=== PATIENT | female | born 1975 | race Caucasian/White ===

== ENCOUNTER 2024-07-28 13:29 | Emergency (ER) | payer OTHER ==
[2024-07-28] MEDS ORDERED: Morphine 2 MG/ML VIAL ONE (13:56)
[2024-07-28] MEDS ORDERED: Aspirin 325 MG TAB ONE (13:56)
[2024-07-28] MEDS ORDERED: Ondansetron PF 4 MG/2 ML Vial ONE (13:56)
[2024-07-28] MEDS ORDERED: Famotidine/PF 20 mg/2ml Vial ONE (13:56)
[2024-07-28 13:57] LABS: #Lymphocytes 1.8 thou/uL (1.20-3.40); #Monocytes 0.4 thou/uL (0.11-0.59); #Neutrophils 2.8 thou/uL (1.40-6.50); %Basophils 0.8 % (0.0-1.0); %Eosinophils 0.9 % (0.0-10.0); %Lymphocytes 35.2 % (21.0-51.0); %Monocytes 7.3 % (0.0-10.0); %Neutrophils 55.8 % (42.0-75.0); Hematocrit 37.9 % (36.0-47.0); Hemoglobin 13.4 g/dL (12.0-16.0); Mean Corpuscular HGB CONC 35.3 g/dL (32.0-36.0); Mean Corpuscular Volume 90.6 fl (78.0-98.0); Mean Platelet Volume 7.3 fL (7.4-10.4); Platelet Count 201 10x3/uL (130-400); RBC Distribution Width 10.1 % (11.5-14.5); Red Blood Cell (RBC) Count 4.19 mill/uL (4.20-5.40); White Blood Cell (WBC) Count 5.1 10x3/uL (4.8-10.8)
[2024-07-28 14:07] LABS: Prothrombin Time 13.7 sec (12.0-14.7)
[2024-07-28 14:08] LABS: PTT 32.8 sec (22.9-36.1)
[2024-07-28 14:16] LABS: ALT (SGPT) 18 U/L (Less than 34); AST (SGOT) 18 U/L (11-34); Albumin 4.3 g/dL (3.1-4.5); Alkaline Phosphatase 25 U/L (40-110); Anion Gap 14 mmol/L (10-20); BUN (Urea Nitrogen) 12 mg/dL (7.0-18.7); Bilirubin, Total 0.4 mg/dL (0.3-1.2); Calc. Creatinine Clearance 0 mL/min (70-130); Calcium 9.6 mg/dL (7.8-10.44); Carbon Dioxide 25 mmol/L (22-29); Chloride 104 mmol/L (98-107); Estimated GFR 104; Globulin 2.6 g/dL (2.4-3.5); Glucose 78 mg/dL (70-105); Lipase 14 U/L (8-78); Potassium 3.7 mmol/L (3.5-5.1); Protein, Total 6.9 g/dL (6.0-8.3); Sodium 139 mmol/L (136-145); Troponin I 0.012 ng/mL (< 0.028)
[2024-07-28 14:43] LABS: Bilirubin Negative (Negative); Blood, Urine Negative (Negative); Clarity Clear (Clear); Glucose, Urine (Dipstick) Negative (Negative); Ketone, Urine Negative (Negative); Leukocyte Negative (Negative); Nitrite Negative (Negative); Protein, Urine (Dipstick) Negative (Neg-Trace); Urobilinogen 0.2 mg/dL (Less than 2)
[2024-07-28 14:55] LABS: Bacteria/HPF 2+ HPF (None Seen); CAUTI Indications for Culture Dysuria,urgency,freq; RBC/HPF None Seen HPF (0-3); Squamous Epithelial 0-3 HPF (0-3); WBC/HPF 0-3 HPF (0-3)
[2024-07-28 14:56] LABS: Urine Culture Reflex No No
== END 2024-07-28 15:10 | disposition home or self-care (01) ==
LOC: BURERS 13:29
DX: R10.13 Epigastric pain (principal); R10.33 Periumbilical pain; R07.9 Chest pain, unspecified
CPT/HCPCS: 71275; 74177; 80053; 81001; 83605; 83690; 83880; 84484; 85025; 85610; 85730; 96374; 96375; J2272; J2405; J3490